=== PATIENT | male | born 1990 | race Caucasian/White ===

== ENCOUNTER 2018-01-04 22:04 | Emergency (ER) | payer SELFPAY ==
[~2018-01-04] VITALS: Ht 165.1 cm; Wt 115.2 kg
[2018-01-04 22:05] VITALS: Ht 165.1 cm; Wt 115.2 kg
[2018-01-04 22:57] VITALS: BP 122/60
== END 2018-01-04 22:57 | disposition home or self-care (01) ==
LOC: ED 22:04
DX: K02.9 Dental caries, unspecified (principal)